=== PATIENT | female | born 1995 | race Caucasian/White ===

== ENCOUNTER 2018-10-28 00:54 | Emergency (ER) | payer OTHER ==
[2018-10-28] MEDS ORDERED: KETOROLAC TROMETHAMINE 60 MG/2 ML VIAL ONE (01:48)
== END 2018-10-28 02:12 ==
LOC: EDH 00:54
DX: S20.229A Contusion of unspecified back wall of thorax, initial encounter (principal); S60.221A Contusion of right hand, initial encounter; Y04.0XXA Assault by unarmed brawl or fight, initial encounter; Y93.89 Activity, other specified; Y92.89 Other specified places as the place of occurrence of the external cause; Y99.8 Other external cause status
CPT/HCPCS: 73130; 81025; 96372; 99285; J1885

== ENCOUNTER 2019-03-09 13:01 | Emergency (ER) | payer OTHER | END 2019-03-09 14:21 | disposition home or self-care (01) | LOC: EDH 13:01 | DX: S93.492A Sprain of other ligament of left ankle, initial encounter (principal); X50.1XXA Overexertion from prolonged static or awkward postures, initial encounter; Y93.89 Activity, other specified; Y92.89 Other specified places as the place of occurrence of the external cause; Y99.8 Other external cause status | CPT/HCPCS: 73610; 73630 ==

== ENCOUNTER 2019-03-28 11:52 | Emergency (ER) | payer OTHER ==
[2019-03-28] MEDS ORDERED: IOHEXOL-350 75 ML VIAL IV ONE (12:06)
[2019-03-28] MEDS ORDERED: SODIUM CHLORIDE 0.9% 1000ML 1,000 ML IV ONE (12:51)
[2019-03-28] MEDS ORDERED: MORPHINE SULFATE 4 MG/1ML SYG ONE (12:51)
[2019-03-28] MEDS ORDERED: ONDANSETRON HCL 4 MG/2 ML VIAL ONE (12:51)
[2019-03-28 13:00] LABS: BASOPHILS % (AUTO) 0.9 % (0.0-5.0); EOSINOPHILS % (AUTO) 1.5 % (0.0-8.0); HEMATOCRIT 42.5 % (36-48); LYMPHOCYTES % (AUTO) 23.2 % (21.0-51.0); MEAN CORPUSCULAR HEMOGLOBIN 32.1 pg (27.0-33.0); MEAN CORPUSCULAR HGB CONC 34.3 g/dL (32.0-36.0); MEAN CORPUSCULAR VOLUME 93.6 fL (79-99); MONOCYTES % (AUTO) 8.4 % (3.0-13.0); PLATELET COUNT (AUTO) 229 K/uL (130-400); RED BLOOD CELL COUNT(AUTO) 4.54 MIL/uL (4.00-5.50); RED CELL DISTRIBUTION WIDTH 13.4 % (11.0-15.5)
[2019-03-28] MEDS ORDERED: TETANUS/DIPHTHERIA TOXOID [ADULT] 0.5 ML VIAL IM ONE (13:03)
[2019-03-28 13:13] LABS: INR 1.13 (0.85-1.15); PARTIAL THROMBOPLASTIN TIME 29.6 SEC (26.3-35.5); PROTHROMBIN TIME 11.8 SEC (9.6-11.6)
[2019-03-28 13:15] LABS: CREATININE 0.9 mg/dL (0.5-1.5)
[2019-03-28 13:26] LABS: ALBUMIN 4.1 g/dL (3.5-5.0); BILIRUBIN,TOTAL 2.2 mg/dL (0.2-1.0); TOTAL PROTEIN, SERUM 7.7 g/dL (6.0-8.3)
[2019-03-28 14:02] LABS: APPEARANCE,URINE Clear (CLEAR); BILIRUBIN,URINE Small (NEGATIVE); COLOR,URINE Dark Yellow (YELLOW); GLUCOSE, URINE (UA) Negative (NEGATIVE); KETONES,URINE Trace mg/dL (NEGATIVE); LEUKOCYTE ESTERASE ,URINE Negative (NEGATIVE); NITRATE,URINE Negative (NEGATIVE); OCCULT BLOOD,URINE Negative (NEGATIVE); PH,URINE 5.5 (5.0-8.0); PROTEIN,URINE Trace mg/dL (NEGATIVE)
[2019-03-28 14:09] LABS: BACTERIA,URINE Rare /HPF (None Seen); MUCUS,URINE Few LPF (None Seen); RBC,URINE 0-1 /HPF (0-1); SQUAMOUS EPITHELIAL CELL,UR Rare /HPF (0-2); WBC,URINE 0-1 /HPF (0-1)
[2019-03-28 14:11] LABS: AMPHET/METH SCREEN,URINE NEGATIVE (NEGATIVE); BARBITURATE SCREEN, URINE NEGATIVE (NEGATIVE); BENZODIAZEPINES SCREEN,URINE POSITIVE (NEGATIVE); CANNABINOID SCREEN,URINE POSITIVE (NEGATIVE); COCAINE SCREEN,URINE POSITIVE (NEGATIVE); OPIATE SCREEN,URINE POSITIVE (NEGATIVE); PHENCYCLIDINE SCREEN,URINE NEGATIVE (NEGATIVE)
[2019-03-28] MEDS ORDERED: POTASSIUM BICARB/CIT AC 25 MEQ TABLET.EFF ONE (14:15)
[2019-03-28] MEDS ORDERED: LIDOCAINE HCL 1% 20 ML VIAL ONE (16:00)
== END 2019-03-28 17:06 ==
LOC: EEVIPCON 11:52 → EDH 11:52
DX: S01.01XA Laceration without foreign body of scalp, initial encounter (principal); S91.311A Laceration without foreign body, right foot, initial encounter; S30.811A Abrasion of abdominal wall, initial encounter; F19.10 Other psychoactive substance abuse, uncomplicated; F12.10 Cannabis abuse, uncomplicated; F14.10 Cocaine abuse, uncomplicated; F11.10 Opioid abuse, uncomplicated; Z72.0 Tobacco use; V49.88XA Car occupant (driver) (passenger) injured in other specified transport accidents, initial encounter; Y93.89 Activity, other specified; Y92.89 Other specified places as the place of occurrence of the external cause; Y99.8 Other external cause status
CPT/HCPCS: 12032; 12042; 36415; 70450; 70486; 71260; 72125; 73060; 73130 ×2; 73562; 73630 ×2; 74177; 80053; 80305; 81001; 82550; 84484; 84702; 85025; 85610; 85730; 90471; 90714; 93005; 96374; 96375; 99285; J2270; J2405; J7030; Q9967

== ENCOUNTER 2019-11-14 08:07 | Emergency (ER) | payer MEDICAID, OTHER ==
[2019-11-14 08:46] LABS: BASOPHILS % (AUTO) 0.4 % (0.0-5.0); EOSINOPHILS % (AUTO) 0.8 % (0.0-8.0); HEMATOCRIT 40.7 % (36-48); LYMPHOCYTES % (AUTO) 24.9 % (21.0-51.0); MEAN CORPUSCULAR HEMOGLOBIN 30.7 pg (27.0-33.0); MEAN CORPUSCULAR HGB CONC 33.7 g/dL (32.0-36.0); MEAN CORPUSCULAR VOLUME 91.3 fL (79-99); MONOCYTES % (AUTO) 9.4 % (3.0-13.0); NEUTROPHILS % (AUTO) 64.2 % (40.0-77.0); PLATELET COUNT (AUTO) 275 K/uL (130-400); RED BLOOD CELL COUNT(AUTO) 4.46 MIL/uL (4.00-5.50); RED CELL DISTRIBUTION WIDTH 12.2 % (11.0-15.5); WHITE BLOOD COUNT (AUTO) 9.1 K/uL (4.8-10.8)
[2019-11-14 08:54] LABS: CREATININE 0.7 mg/dL (0.5-1.5); POTASSIUM 3.2 mmol/L (3.5-5.1)
[2019-11-14 09:21] LABS: ALBUMIN 4.1 g/dL (3.5-5.0); BILIRUBIN,DIRECT 0.2 mg/dL (0.0-0.3); BILIRUBIN,TOTAL 0.5 mg/dL (0.2-1.0); TOTAL PROTEIN, SERUM 7.7 g/dL (6.0-8.3)
[2019-11-14 10:26] LABS: APPEARANCE,URINE TURBID (CLEAR); BILIRUBIN,URINE MODERATE (NEGATIVE); COLOR,URINE YELLOW (YELLOW); GLUCOSE, URINE (UA) NEGATIVE (NEGATIVE); HCG,QUAL RESULT POSITIVE (NEGATIVE); KETONES,URINE 40 mg/dL (NEGATIVE); LEUKOCYTE ESTERASE ,URINE NEGATIVE (NEGATIVE); NITRATE,URINE NEGATIVE (NEGATIVE); OCCULT BLOOD,URINE LARGE (NEGATIVE); PROTEIN,URINE 30 mg/dL (NEGATIVE)
[2019-11-14 10:34] LABS: AMPHET/METH SCREEN,URINE NEGATIVE (NEGATIVE); BARBITURATE SCREEN, URINE NEGATIVE (NEGATIVE); BENZODIAZEPINES SCREEN,URINE POSITIVE (NEGATIVE); CANNABINOID SCREEN,URINE POSITIVE (NEGATIVE); COCAINE SCREEN,URINE POSITIVE (NEGATIVE); OPIATE SCREEN,URINE NEGATIVE (NEGATIVE); PHENCYCLIDINE SCREEN,URINE NEGATIVE (NEGATIVE)
[2019-11-14 10:36] LABS: BACTERIA,URINE Many /HPF (None Seen); MUCUS,URINE Many LPF (None Seen); RBC,URINE 51-100 /HPF (0-1); SQUAMOUS EPITHELIAL CELL,UR Few /HPF (0-2)
== END 2019-11-14 12:33 | disposition home or self-care (01) ==
LOC: EDH 08:07
DX: O20.0 Threatened abortion (principal); O26.891 Other specified pregnancy related conditions, first trimester; F14.10 Cocaine abuse, uncomplicated; F12.10 Cannabis abuse, uncomplicated; F13.10 Sedative, hypnotic or anxiolytic abuse, uncomplicated; F11.10 Opioid abuse, uncomplicated; Z3A.01 Less than 8 weeks gestation of pregnancy
CPT/HCPCS: 36415; 76801; 80048; 80076; 80305; 81001; 81025; 83690; 84702; 85025; 86850; 86900; 86901; 87088

== ENCOUNTER 2019-11-19 02:29 | Emergency (ER) | payer MEDICAID, OTHER | END 2019-11-19 06:29 | LOC: EDH 02:29 | DX: O20.0 Threatened abortion (principal); Z3A.08 8 weeks gestation of pregnancy | CPT/HCPCS: 36415; 76801; 81001; 83033; 84702; 85025; 86900; 86901; 96372; 99284; J2791 ==

== ENCOUNTER 2019-11-26 22:59 | Emergency (ER) | payer MEDICAID, OTHER ==
[2019-11-26] MEDS ORDERED: SODIUM CHLORIDE 0.9% 1000ML 1,000 ML IV ONE (23:34)
[2019-11-26] MEDS ORDERED: ONDANSETRON HCL 4 MG/2 ML VIAL ONE (23:35)
[2019-11-26] MEDS ORDERED: METOCLOPRAMIDE 10 MG/2 ML VIAL ONE (23:35)
[2019-11-26 23:39] LABS: BASOPHILS % (AUTO) 0.3 % (0.0-5.0); EOSINOPHILS % (AUTO) 0.8 % (0.0-8.0); HEMATOCRIT 39.2 % (36-48); LYMPHOCYTES % (AUTO) 17.9 % (21.0-51.0); MEAN CORPUSCULAR HEMOGLOBIN 30.9 pg (27.0-33.0); MEAN CORPUSCULAR HGB CONC 34.2 g/dL (32.0-36.0); MEAN CORPUSCULAR VOLUME 90.5 fL (79-99); MONOCYTES % (AUTO) 5.8 % (3.0-13.0); NEUTROPHILS % (AUTO) 74.8 % (40.0-77.0); PLATELET COUNT (AUTO) 272 K/uL (130-400); RED BLOOD CELL COUNT(AUTO) 4.33 MIL/uL (4.00-5.50); WHITE BLOOD COUNT (AUTO) 10.2 K/uL (4.8-10.8)
[2019-11-27] LABS: BILIRUBIN,URINE Negative (NEGATIVE); COLOR,URINE Yellow (YELLOW); GLUCOSE, URINE (UA) Negative (NEGATIVE); KETONES,URINE Trace mg/dL (NEGATIVE); LEUKOCYTE ESTERASE ,URINE Negative (NEGATIVE); NITRATE,URINE Negative (NEGATIVE); OCCULT BLOOD,URINE Nonhemolyzed Trace (NEGATIVE); PROTEIN,URINE Trace mg/dL (NEGATIVE)
[2019-11-27 00:02] LABS: AMPHET/METH SCREEN,URINE NEGATIVE (NEGATIVE); BARBITURATE SCREEN, URINE NEGATIVE (NEGATIVE); BENZODIAZEPINES SCREEN,URINE NEGATIVE (NEGATIVE); CANNABINOID SCREEN,URINE NEGATIVE (NEGATIVE); COCAINE SCREEN,URINE NEGATIVE (NEGATIVE); OPIATE SCREEN,URINE NEGATIVE (NEGATIVE); PHENCYCLIDINE SCREEN,URINE NEGATIVE (NEGATIVE)
[2019-11-27 00:05] LABS: APPEARANCE,URINE SLIGHTLY CLOUDY (CLEAR)
[2019-11-27 00:10] LABS: CREATININE 0.9 mg/dL (0.5-1.5); POTASSIUM 3.6 mmol/L (3.5-5.1)
[2019-11-27 00:16] LABS: AMORPHOUS SEDIMENT,UR Few /LPF (None Seen); BACTERIA,URINE Few /HPF (None Seen); MUCUS,URINE Few LPF (None Seen)
[2019-11-27 00:38] LABS: ALBUMIN 3.9 g/dL (3.5-5.0); BILIRUBIN,TOTAL 0.2 mg/dL (0.2-1.0); TOTAL PROTEIN, SERUM 7.3 g/dL (6.0-8.3)
[2019-11-27] MEDS ORDERED: LACTULOSE 20 GM/30 ML UDCUP ONE (01:19)
== END 2019-11-27 01:25 | disposition home or self-care (01) ==
LOC: EDH 22:59
DX: O20.0 Threatened abortion (principal); O00.01 Abdominal pregnancy with intrauterine pregnancy; K59.00 Constipation, unspecified; Z3A.09 9 weeks gestation of pregnancy
CPT/HCPCS: 36415; 76801; 80053; 80305; 81001; 83690; 84702; 85025; 96374; 96375; 99284; J2405; J2765; J7030

== ENCOUNTER 2020-06-16 02:34 | Inpatient (IN) | payer MEDICAID ==
[~2020-06-16] VITALS: Ht 172.7 cm; Wt 77.1 kg
[2020-06-16] MEDS ORDERED: LACTATED RINGERS 1000ML 1,000 ML IV PRN (03:15)
[2020-06-16] MEDS: LACTATED RINGERS 1000ML 1,000 ML IV SCH ×2 (03:15→05:22)
[2020-06-16 03:16] LABS: AMPHET/METH SCREEN,URINE NEGATIVE (NEGATIVE); BARBITURATE SCREEN, URINE NEGATIVE (NEGATIVE); BENZODIAZEPINES SCREEN,URINE NEGATIVE (NEGATIVE); CANNABINOID SCREEN,URINE NEGATIVE (NEGATIVE); COCAINE SCREEN,URINE NEGATIVE (NEGATIVE); OPIATE SCREEN,URINE NEGATIVE (NEGATIVE); PHENCYCLIDINE SCREEN,URINE NEGATIVE (NEGATIVE)
[2020-06-16 03:25] LABS: HEMATOCRIT 37.6 % (36-48); MEAN CORPUSCULAR HGB CONC 34.6 g/dL (32.0-36.0); MEAN CORPUSCULAR VOLUME 89.5 fL (79-99); RED BLOOD CELL COUNT(AUTO) 4.2 MIL/uL (4.00-5.50); RED CELL DISTRIBUTION WIDTH 12.4 % (11.0-15.5); WHITE BLOOD COUNT (AUTO) 9.6 K/uL (4.8-10.8)
[2020-06-16 03:38] VITALS: BP 125/76
[2020-06-16] MEDS ORDERED: LACTATED RINGERS 500 ML 500 ML IV PRN (03:45)
[2020-06-16] MEDS ORDERED: ROPIVACAINE 0.2% 100ML VIAL 100 ML EP PRN (03:45)
[2020-06-16] MEDS ORDERED: MEPERIDINE-PF 50 MG/ML SYG IVP PRN (03:45)
[2020-06-16] MEDS ORDERED: EPHEDRINE SULFATE 50 MG/ML AMPULE IVP PRN (03:45)
[2020-06-16] MEDS ORDERED: NALOXONE HCL 0.4 MG/1 ML ML IV PRN (03:45)
[2020-06-16] MEDS ORDERED: PROMETHAZINE HCL 25 MG/ML 1ML AMPULE IM PRN (03:45)
[2020-06-16] MEDS ORDERED: PREN1TAB80 PO (03:50)
[2020-06-16] MEDS ORDERED: ONDA22I IM (03:50)
[2020-06-16] MEDS ORDERED: OXYTOCIN-LR 20 UNITS/1000 ML 1,000 ML IV ONE (04:06)
[2020-06-16] MEDS ORDERED: LACTATED RINGERS 1000ML 1,000 ML IV SCH (04:15)
[2020-06-16] MEDS ORDERED: OXYTOCIN-LR 20 UNITS/1000 ML 1,000 ML IV SCH ×2 (04:15→11:15)
[2020-06-16] MEDS ORDERED: LIDOCAINE HCL 1% 20 ML VIAL ONE (10:22)
[2020-06-16] MEDS ORDERED: METHYLERGONOVINE MALEATE 0.2 MG/1 ML ML ONE (10:39)
[2020-06-16] MEDS ORDERED: LANOLIN 30GM OINTMENT TP PRN (11:15)
[2020-06-16] MEDS ORDERED: DIPH,PERTUSS(ACELL),TET VAC/PF 0.5 ML VIAL IM PRN (11:15)
[2020-06-16] MEDS ORDERED: ACETAMINOPHEN WITH CODEINE 1 TAB TAB PO PRN (11:15)
[2020-06-16] MEDS ORDERED: ACETAMINOPHEN 325 MG TAB PO PRN (11:15)
[2020-06-16] MEDS ORDERED: WITCH HAZEL 1 PAD TP PRN (11:15)
[2020-06-16] MEDS ORDERED: MEASLES/MUMPS/RUBELLA VACCINE, LIVE 0.5 ML/VIAL SQ PRN (11:15)
[2020-06-16] MEDS ORDERED: BENZOCAINE/LANOLIN/ALOE VERA 60 ML AEROSOL TP PRN (11:15)
[2020-06-16] MEDS ORDERED: LIDOCAINE HCL 1% 20 ML VIAL INJ SCH (11:45)
[2020-06-16] MEDS ORDERED: METHYLERGONOVINE MALEATE 0.2 MG/1 ML ML IM SCH (11:45)
[2020-06-16] MEDS: IBUPROFEN 600 MG TABLET PO PRN ×2 (12:12→20:37)
[2020-06-16 13:30] VITALS: BP 124/94
[2020-06-16 16:00] VITALS: BP 121/88
[2020-06-16 20:00] VITALS: BP 114/76
[2020-06-16] MEDS: DOCUSATE SODIUM 100 MG CAP PO SCH (20:36)
[2020-06-16 23:10] VITALS: BP 111/68
[2020-06-17 04:00] VITALS: BP 96/55
[2020-06-17 06:42] LABS: HEMATOCRIT 31.7 % (36-48); MEAN CORPUSCULAR HEMOGLOBIN 30.5 pg (27.0-33.0); MEAN CORPUSCULAR HGB CONC 33.4 g/dL (32.0-36.0); MEAN CORPUSCULAR VOLUME 91.1 fL (79-99); RED BLOOD CELL COUNT(AUTO) 3.48 MIL/uL (4.00-5.50); RED CELL DISTRIBUTION WIDTH 12.6 % (11.0-15.5); WHITE BLOOD COUNT (AUTO) 12.1 K/uL (4.8-10.8)
[2020-06-17] MEDS: IBUPROFEN 600 MG TABLET PO PRN (06:45)
[2020-06-17 07:20] VITALS: BP 117/72
[2020-06-17 08:12] LABS: HEPATITIS Bs ANTIGEN SCREEN P Negative (Negative)
[2020-06-17] MEDS: DOCUSATE SODIUM 100 MG CAP PO SCH (09:17)
== END 2020-06-17 11:35 | disposition home or self-care (01) | DRG 560 ==
LOC: EDH 02:34 → OBSVTOIN 02:47 → LDH 02:47 → WSH 13:30
PROVIDERS: ADMIT Obstetrics & Gynecology; ATTEND Obstetrics & Gynecology
PROC: 10E0XZZ Delivery of Products of Conception, External Approach (ICD-10-PCS; principal; 2020-06-16)
PROC: 0KQM0ZZ Repair Perineum Muscle, Open Approach (ICD-10-PCS; 2020-06-16)
PROC: 3E0R3BZ Introduction of Anesthetic Agent into Spinal Canal, Percutaneous Approach (ICD-10-PCS; 2020-06-16)
PROC: 00HU33Z Insertion of Infusion Device into Spinal Canal, Percutaneous Approach (ICD-10-PCS; 2020-06-16)
PROC: 3E0 Administration, Physiological Systems and Anatomical Regions, Introduction (ICD-10-PCS; 2020-06-16)
PROC: 3E0134Z Introduction of Serum, Toxoid and Vaccine into Subcutaneous Tissue, Percutaneous Approach (ICD-10-PCS; 2020-06-16)
PROC: 3E0334Z Introduction of Serum, Toxoid and Vaccine into Peripheral Vein, Percutaneous Approach (ICD-10-PCS; 2020-06-16)
PROC: 3E0234Z Introduction of Serum, Toxoid and Vaccine into Muscle, Percutaneous Approach (ICD-10-PCS; 2020-06-16)
DX: O70.1 Second degree perineal laceration during delivery (principal); Z3A.38 38 weeks gestation of pregnancy; Z37.0 Single live birth; Z67.41 Type O blood, Rh negative; Z23 Encounter for immunization
CPT/HCPCS: 36415; 80305; 83033; 85027; 86592; 86850; 86900; 86901; 87340; 90715; A4314; G0378; J2210; J2590; J2791; J2795; J7120

== ENCOUNTER 2020-07-23 21:12 | Emergency (ER) | payer MEDICAID ==
[~2020-07-23 21:12] MED LIST: ONDA22I IM; PREN1TAB80 PO
[2020-07-23] MEDS ORDERED: L.E.T. GEL 3ML SYG TP ONE (21:54)
== END 2020-07-23 22:30 | disposition home or self-care (01) ==
LOC: EDH 21:12
DX: S41.111A Laceration without foreign body of right upper arm, initial encounter (principal); F14.10 Cocaine abuse, uncomplicated; F12.10 Cannabis abuse, uncomplicated; F11.10 Opioid abuse, uncomplicated; W26.8XXA Contact with other sharp object(s), not elsewhere classified, initial encounter; Y93.39 Activity, other involving climbing, rappelling and jumping off; Y92.89 Other specified places as the place of occurrence of the external cause; Y99.8 Other external cause status
CPT/HCPCS: 12002; 99282